=== PATIENT | male | born 1980 | race Caucasian/White ===

== ENCOUNTER 2019-02-18 07:32 | Emergency (ER) | payer MEDICAID, OTHER ==
[2019-02-18] MEDS ORDERED: Bupivacaine 0.5% 10 ML SDV INJECT ONE (08:44)
[2019-02-18] MEDS ORDERED: Lidocaine 1% 10 ML MDV INJECT ONE (08:44)
--- NOTE | 2019-02-18 08:45 | EDM.PDOC ---
ED HPI GENERAL MEDICAL PROBLEM - General Chief Complaint: Upper Extremity Injury/Pain Stated Complaint: R FINGER INFECTION Time Seen by Provider: 02/18/19 08:33 Source of Information: Reports: Patient, RN Notes Reviewed History Limitations: Reports: No Limitations - History of Present Illness INITIAL COMMENTS - FREE TEXT/NARRATIVE: The patient states that he was clipping his fingernails last week, and pulled out a hangnail from his right second finger. He subsequently developed pain, swelling, and redness to the cuticle area, that has persisted now for about 5 days. He had some purulent drainage about 2 days ago. He has been applying topical Neosporin. No recent fever. The patient states that he had a similar condition years ago, but that it resolved on its own. The patient's PCP is Keren Linares. Right Finger-Index Pain Score (Numeric/FACES): 6 - Related Data Allergies Allergy/AdvReac Type Severity Reaction Status Date / Time No Known Allergies Allergy Verified 02/18/19 07:42 Past Medical History Cardiovascular History: Reports: High Cholesterol (untreated) Endocrine/Metabolic History: Reports: Obesity/BMI 30+ - Past Surgical History HEENT Surgical History: Reports: Oral Surgery (1 wisdom tooth extracted) Social & Family History - Family History Family Medical History: Noncontributory - Tobacco Use Smoking Status *Q: Former Smoker Tobacco Use Within Last Twelve Months: Smokeless Tobacco (Chews 1/4 tin per day) Years of Tobacco use: 27 Packs/Tins Daily: 1.5 Month/Year Tobacco Last Used: Quit 09/25/2018 - Caffeine Use Caffeine Use: Reports: None - Alcohol Use Alcohol Use History: No - Recreational Drug Use Recreational Drug Use: No - Living Situation & Occupation Living situation: Reports: Single, Other (Ex-girlfriend) Occupation: Employed ([employer]) Review of Systems - Review of Systems Review Of Systems: ROS reveals no pertinent complaints other than HPI. ED EXAM, GENERAL - Physical Exam Exam: See Below Exam Limited By: No Limitations General Appearance: Alert, WD/WN, No Apparent Distress Extremities: Other (Tender, erythematous, fluctuant swelling to the skin just proximal to the nailbed of the right second finger. No obvious purulence. Neurovascular status of the right second finger is intact.) ED TRAUMA EXTREMITY PROCEDURES - I&D Site: Right 2nd finger Skin Prep: Providone-Iodine (Betadine) Local Anesthesia: Lidocaine: 1% Plain (50:50 admixture) Local Anesthesia - Bupivicaine (Marcaine): 0.5% Plain (50:50 admixture) Local Anesthetic Volume: 4cc Area Incised With: 11 Blade Drainage: Purulent, Bloody, Small Amount Probed to Break Up Loculations: No Complications: No Course - Vital Signs Last Recorded V/S: Last Vital Signs Temp 36.4 C 02/18/19 07:38 Pulse 74 02/18/19 07:38 Resp 14 02/18/19 07:38 BP 143/100 H 02/18/19 07:38 Pulse Ox 98 02/18/19 07:38 - Orders/Labs/Meds Meds: Medications Discontinued Medications Generic Name Dose Route Start Last Admin Trade Name Bryce PRN Reason Stop Dose Admin Bupivacaine HCl 10 ml 02/18/19 08:44 02/18/19 09:10 Sensorcaine-Mpf 0.5% INJECT 02/18/19 08:45 10 ml ONETIME ONE Administration Lidocaine HCl 10 ml 02/18/19 08:44 02/18/19 09:10 Xylocaine 1% INJECT 02/18/19 08:45 10 ml ONETIME ONE Administration - Re-Assessments/Exams Free Text/Narrative Re-Assessment/Exam: 02/18/19 08:44 The patient has a paronychia to his right second finger. I will apply a digital block, then tonya it. 02/18/19 09:45 Digital block followed by incision and drainage of the paronychia was performed by Holley Block NP. Only a small amount of bloody purulent fluid was drained. I will have the patient "milk" his finger with warm soapy water several times a day. Antibiotics are not indicated in this case. I will provide him with a note for work. Departure - Departure Time of Disposition: 09:46 Disposition: Home, Self-Care 01 Condition: Good Clinical Impression: Paronychia of right index finger - Discharge Information *PRESCRIPTION DRUG MONITORING PROGRAM REVIEWED*: Not Applicable *COPY OF PRESCRIPTION DRUG MONITORING REPORT IN PATIENT KIARA: Not Applicable Instructions: Paronychia, [id number] Referrals: Keren Linares NP [Primary Care Provider] - Forms: ED Department Discharge, ED Return to Work/School Form Additional Instructions: You were seen in the emergency room for painful swelling to your right index finger. On examination, you have a paronychia. After your finger was numbed with a digital block, the paronychia was incised and drained. Going forward, we recommend that you "milk" your finger under warm soapy water, several times a day. Take [id number] ibuprofen, 2-3 tablets (400-600 mg) every 8 hours, with food, as needed for discomfort. Follow-up with your PCP, Keren Linares, as needed. If any other problems, please do not hesitate to return to the ER.
== END 2019-02-18 10:05 | disposition home or self-care (01) ==
LOC: JD.ED 07:32
DX: L03.011 Cellulitis of right finger (principal); E66.9 Obesity, unspecified; Z98.890 Other specified postprocedural states; Z87.891 Personal history of nicotine dependence
CPT/HCPCS: 10060; 99282; J2001; J3490